=== PATIENT | female | born 1995 | race Caucasian/White ===

== ENCOUNTER 2021-10-11 16:30 | Emergency (ER) | payer OTHER ==
[2021-10-11] MEDS ORDERED: Morphine 4 MG/ML Syringe IVPUSH ONE (16:59)
[2021-10-11] MEDS ORDERED: Ondansetron 4 MG/2 ML SDV IVPUSH ONE (16:59)
[2021-10-11] MEDS ORDERED: Sodium Chloride 0.9% 1,000 ML IV ONE (16:59)
== END 2021-10-11 18:50 | disposition home or self-care (01) ==
LOC: JD.ED 16:30
DX: R10.11 Right upper quadrant pain (principal); R10.12 Left upper quadrant pain; R11.2 Nausea with vomiting, unspecified; Z88.8 Allergy status to other drugs, medicaments and biological substances
CPT/HCPCS: 36415; 80053; 81001; 81025; 83690; 85025; 86140; 87086; 96374; 96375; 99284; J2270; J2405; J7030

== ENCOUNTER 2021-10-13 16:07 | Emergency (ER) | payer OTHER ==
[2021-10-13] MEDS ORDERED: Sodium Chloride 0.9% 1,000 ML IV STA (16:39)
[2021-10-13] MEDS ORDERED: Sodium Chloride 0.9% 10 ML Syringe FLUSH PRN (16:39)
[2021-10-13] MEDS ORDERED: Ondansetron 4 MG/2 ML SDV IVPUSH ONE (16:39)
[2021-10-13] MEDS ORDERED: HYDROmorphone 1 MG/ML Syringe IVPUSH ONE (16:41)
[2021-10-13] MEDS ORDERED: Iopamidol 612 MG/ML 100 ML Bottle IVPUSH ONE (16:45)
[2021-10-13] MEDS ORDERED: Sodium Chloride 0.9% 100 ML IV SCH (16:45)
[2021-10-13] MEDS ORDERED: Sodium Chloride 0.9% 10 ML Syringe FLUSH ONE (16:45)
== END 2021-10-13 20:11 | disposition home or self-care (01) ==
LOC: JD.ED 16:07
DX: N83.202 Unspecified ovarian cyst, left side (principal); R19.7 Diarrhea, unspecified; R11.2 Nausea with vomiting, unspecified; Z88.7 Allergy status to serum and vaccine
CPT/HCPCS: 36415; 71250; 74177; 80053; 81001; 83690; 84703; 85025; 96374; 96375; 99284; J1170; J2405; J7030; Q9967; 99285

== ENCOUNTER 2022-06-27 15:33 | Emergency (ER) | payer OTHER | END 2022-06-27 16:25 | disposition home or self-care (01) | LOC: JD.ED 15:33 | DX: O9A.211 Injury, poisoning and certain other consequences of external causes complicating pregnancy, first trimester (principal); S39.81XA Other specified injuries of abdomen, initial encounter; O99.511 Diseases of the respiratory system complicating pregnancy, first trimester; J45.909 Unspecified asthma, uncomplicated; Z88.4 Allergy status to anesthetic agent; W00.0XXA Fall on same level due to ice and snow, initial encounter; Y92.009 Unspecified place in unspecified non-institutional (private) residence as the place of occurrence of the external cause; Z3A.12 12 weeks gestation of pregnancy | CPT/HCPCS: 99283 ==

== ENCOUNTER 2022-10-06 03:58 | Emergency (ER) | payer OTHER ==
[2022-10-06] MEDS ORDERED: Lactated Ringers 1,000 ML IV ONE ×2 (04:21→05:55)
[2022-10-06] MEDS ORDERED: Ondansetron 4 MG/2 ML SDV IVPUSH ONE (04:45)
[2022-10-06] MEDS: Sucralfate Suspension 1 GM/10 ML Cup PO ONE ×2 (04:50→05:07)
== END 2022-10-06 07:05 | disposition home or self-care (01) ==
LOC: JD.ED 03:58
DX: K52.9 Noninfective gastroenteritis and colitis, unspecified (principal); Z88.4 Allergy status to anesthetic agent; Z79.899 Other long term (current) drug therapy
CPT/HCPCS: 36415; 80053; 81003; 83690; 84703; 85025; 96361; 96374; 99284; A9270; J2405; J7120; 99283